=== PATIENT | male | born 2000 | race Two or more races ===

== ENCOUNTER 2020-08-03 21:16 | Emergency (ER) | payer SELFPAY ==
[~2020-08-03] VITALS: Ht 167.6 cm; Wt 76.2 kg
--- NOTE | 2020-08-03 21:36 | NUR ---
ED Nurse Note: pT AMBULATED TO ED FROM HOME C/O 10 R LOWER ABDOMINAL PAIN SINCE THIS MORNING WITH 2 EPISODES OF N/V/D, PT IS A&OX4, VSS.
[2020-08-03 21:39] VITALS: BP 135/80
[2020-08-03] MEDS ORDERED: Omnipaque-300 100ml vial INJ PRN (21:45)
--- NOTE | 2020-08-03 22:04 | Emergency Room Report ---
History of Present Illness General Chief Complaint: Abdominal Pain Source: Patient Present Illness HPI Disclaimer: Please note that this report is being documented using [employer] technology. This can lead to erroneous entry secondary to incorrect interpretation by the dictating instrument. HPI: Otherwise healthy 19-year-old male presents for abdominal pain. Symptoms began this morning. When the patient awoke he was noted cramping in the right lower quadrant of the abdomen that has become worse throughout the day. Multiple episodes of vomiting. Denies diarrhea. Denies fever. No prior history of abdominal surgeries. Nothing makes it better. Nothing makes it worse. Unable to eat today due to the pain. No prior history of gallstones, kidney stones, bladder infection. Denies chest pain, shortness of breath, cough, congestion or URI symptoms. PMH: Denied PSH: Denied Allergies: Denied Social Hx: Regular tobacco use, occasional alcohol use, denies drug use Allergies: Coded Allergies: No Known Allergies (Unverified , 08/03/20) COVID-19 Screening Contact w/high risk pt: No Experienced COVID-19 symptoms?: No COVID-19 Testing performed HEAD OF SALES: No Nursing Documentation-PMH Past Medical History: No Stated History Review of Systems All Other Systems: negative except mentioned in HPI Physical Exam Vital Signs Date Time Temp Pulse Resp B/P (MAP) Pulse Ox O2 Delivery O2 Flow Rate FiO2 08/03/20 21:32 98.4 100 15 135/80 (98) 98 Room Air General: Awake and alert, appears moderately uncomfortable HEENT: NC/AT. EOMI. Cardiovascular: RRR. S1 and S2 normal. No murmur appreciated Resp: Normal work of breathing. No cough, wheezing or crackles appreciated Abdomen: Abdomen is soft, nondistended. Tender to palpation in the suprapubic region, right lower quadrant, periumbilical region. No palpable masses. No guarding. Negative rebound. Negative Young's tenderness or tenderness in the left upper quadrant or epigastric region. Negative Rovsing sign. Skin: Intact. No abrasions, laceration or rash over the exposed skin MSK: Normal tone and bulk. Moving all extremities. No obvious deformity. Neuro: Awake and alert. Mentating appropriately. Medical Decision Making Diagnostic Impression: Primary Impression: Abdominal pain Additional Impression: Nausea and vomiting ER Course Is a 19-year-old male presenting for evaluation of worsening right lower quadrant abdominal pain 1 days duration. Concern for appendicitis, nephrolithiasis, cholecystitis, gastritis, gastroenteritis, constipation, viral syndrome, bowel obstruction among others. Patient receiving IV fluids, keeping n.p.o., antiemetics provided. Blood work returned within normal limits. CT scan does not show acute intra-abdominal process. Limbus vertebrae are noted. Patient declined to give urine. No vomiting in the ED. Feeling improved overall. May be a viral syndrome which should resolve over the next few days. Instructed on dietary changes as he eats a lot of spicy food and caffeinated drinks. Prescribe Zofran. Stable for outpatient follow-up. Discussed reasons to return to the ED. He understands and agrees with this treatment plan. Laboratory Tests Test 08/03/20 21:45 White Blood Count 10.5 K/UL (4.8-10.8) Red Blood Count 5.22 M/UL (4.70-6.10) Hemoglobin 18.0 G/DL (14.2-18.0) Hematocrit 45.4 % (42.0-52.0) Mean Corpuscular Volume 87 FL (80-99) Mean Corpuscular Hemoglobin 34.4 PG (27.0-31.0) H Mean Corpuscular Hemoglobin Concent 39.5 G/DL (32.0-36.0) H Red Cell Distribution Width 12.7 % (11.6-14.8) Platelet Count 222 K/UL (150-450) Mean Platelet Volume 8.7 FL (6.5-10.1) Neutrophils (%) (Auto) 65.5 % (45.0-75.0) Lymphocytes (%) (Auto) 26.3 % (20.0-45.0) Monocytes (%) (Auto) 6.5 % (1.0-10.0) Eosinophils (%) (Auto) 1.0 % (0.0-3.0) Basophils (%) (Auto) 0.7 % (0.0-2.0) Sodium Level 141 MMOL/L (136-145) Potassium Level 3.6 MMOL/L (3.5-5.1) Chloride Level 103 MMOL/L (98-107) Carbon Dioxide Level 31 MMOL/L (21-32) Anion Gap 7 mmol/L (5-15) Blood Urea Nitrogen 11 mg/dL (7-18) Creatinine 0.8 MG/DL (0.55-1.30) Estimated Glomerular Filtration Rate > 60 mL/min (>60) Glucose Level 107 MG/DL (74-106) H Calcium Level 9.0 MG/DL (8.5-10.1) Total Bilirubin 0.6 MG/DL (0.2-1.0) Aspartate Amino Transferase (AST) 26 U/L (15-37) Alanine Aminotransferase (ALT) 43 U/L (12-78) Alkaline Phosphatase 94 U/L (46-116) Total Protein 8.1 G/DL (6.4-8.2) Albumin 4.5 G/DL (3.4-5.0) Globulin 3.6 g/dL Albumin/Globulin Ratio 1.2 (1.0-2.7) Lipase 86 U/L (73-393) CT/MRI/US Diagnostic Results CT/MRI/US Diagnostic Results : Impression IMPRESSION: There is no acute intra-abdominal process. Limbus vertebrae at L3 and L4 are favored over corner fractures. Clinical correlation is recommended. . Dictated By: Chrissy Zheng M.D. Electronically Signed By:Chrissy Zheng M.D. Signed Date/Time 08/03/20 4282 Last Vital Signs Date Time Temp Pulse Resp B/P (MAP) Pulse Ox O2 Delivery O2 Flow Rate FiO2 08/03/20 21:39 98.4 100 15 135/80 98 Room Air Disposition: HOME, SELF-CARE Condition: Stable Scripts Ondansetron Odt* (ZOFRAN ODT*) 4 Mg Tab.rapdis 4 MG BC EVERY 6 HOURS PRN for Nausea & Vomiting, #20 TAB 0 Refills Prov: Jersey Green MD 08/03/20 Jersey Green MD Aug 03, 2020 22:04
[2020-08-03 22:40] LABS: BASOPHILS % (AUTO) 0.7 % (0.0-2.0); HEMATOCRIT 45.4 % (42.0-52.0); LYMPHOCYTES % (AUTO) 26.3 % (20.0-45.0); MEAN CORPUSCULAR VOLUME 87 FL (80-99); MONOCYTES % (AUTO) 6.5 % (1.0-10.0); NEUTROPHILS % (AUTO) 65.5 % (45.0-75.0); PLATELET COUNT 222 K/UL (150-450); RED BLOOD COUNT 5.22 M/UL (4.70-6.10); RED CELL DISTRIBUTION WIDTH 12.7 % (11.6-14.8); WHITE BLOOD COUNT 10.5 K/UL (4.8-10.8)
[2020-08-03 22:49] LABS: ANION GAP 7 mmol/L (5-15); BLOOD UREA NITROGEN 11 mg/dL (7-18); CARBON DIOXIDE 31 MMOL/L (21-32); CHLORIDE 103 MMOL/L (98-107); CREATININE 0.8 MG/DL (0.55-1.30); POTASSIUM 3.6 MMOL/L (3.5-5.1); SODIUM 141 MMOL/L (136-145)
[2020-08-03 22:55] LABS: ALANINE AMINOTRANSFERASE 43 U/L (12-78); ALBUMIN 4.5 G/DL (3.4-5.0); ALBUMIN/GLOBULIN RATIO 1.2 (1.0-2.7); ALKALINE PHOSPHATASE 94 U/L (46-116); ASPARTATE AMINO TRANSFERASE 26 U/L (15-37); BILIRUBIN,TOTAL 0.6 MG/DL (0.2-1.0)
--- NOTE | 2020-08-03 23:03 | NUR ---
ED Nurse Note: Pt to CT
--- NOTE | 2020-08-03 23:33 | Diagnostic Imaging Report ---
EXAM: CT Abdomen and Pelvis With Intravenous Contrast CLINICAL HISTORY: PAIN TECHNIQUE: Axial computed tomography images of the abdomen and pelvis with intravenous contrast. CTDI is 5.2 mGy and DLP is 300.2 mGy-cm. One or more of the following dose reduction techniques were used: automated exposure control, adjustment of the mA and/or kV according to patient size, use of iterative reconstruction technique. COMPARISON: None FINDINGS: Lung bases: A punctate calcified granuloma is seen at the right lung base. ABDOMEN: Liver: Unremarkable. No mass. Gallbladder and bile ducts: Unremarkable. No calcified stones. No ductal dilation. Pancreas: Unremarkable. No mass. No ductal dilation. Spleen: Unremarkable. No splenomegaly. Adrenals: Unremarkable. No mass. Kidneys and ureters: Unremarkable. No solid mass. No hydronephrosis. Stomach and bowel: There is no evidence of small or large bowel obstruction. The stomach is distended and filled with partially digested contents. There is diverticulosis without evidence of diverticulitis. Visualized portions of the appendix are within normal limits. PELVIS: Appendix: See above. Bladder: Unremarkable. No mass. Reproductive: Unremarkable as visualized. ABDOMEN and PELVIS: Intraperitoneal space: There is no evidence of pneumoperitoneum. There are no drainable fluid collections. Bones/joints: There are limbus vertebrae versus less likely corner fractures of the L3 and L4 vertebral bodies. Clinical correlation is recommended. No dislocation. Soft tissues: Unremarkable. Vasculature: Unremarkable. No abdominal aortic aneurysm. Lymph nodes: Unremarkable. No enlarged lymph nodes. IMPRESSION: There is no acute intra-abdominal process. Limbus vertebrae at L3 and L4 are favored over corner fractures. Clinical correlation is recommended. .
[2020-08-03] MEDS ORDERED: ONDANSETRON ODT4 MG BC (23:42)
[2020-08-03 23:50] VITALS: BP 128/78
--- NOTE | 2020-08-03 23:50 | NUR ---
ER DISCHARGE NOTE: Patient is cleared to be discharged per ERMD, pt is aox4, on room air, with stable vital signs. pt was given dc and prescription instructions, pt was able to verbalize understanding, pt id band and iv site removed without complications. pt is able to ambulate with steady gait. pt took all belongings.
== END 2020-08-03 23:50 | disposition home or self-care (01) ==
LOC: EMR 22:36
DX: R10.31 Right lower quadrant pain (principal); R11.2 Nausea with vomiting, unspecified; F17.200 Nicotine dependence, unspecified, uncomplicated
CPT/HCPCS: 36415; 74177; 80053; 83690; 85025; 99284; Q9965